=== PATIENT | female | born 1980 | race Caucasian/White ===

== ENCOUNTER → 2019-07-17 17:21 | Outpatient (CLI) | payer MEDICAID, SELFPAY ==
[2019-07-21 21:00] LABS: Neisseria gonorrhoeae, NAA Negative (Negative)
== END ==
PROVIDERS: Visit Provider Nurse Practitioner Family
DX: N94.9 Unspecified condition associated with female genital organs and menstrual cycle (principal)
CPT/HCPCS: 87252; 87491; 87591

== ENCOUNTER 2021-01-21 11:28 | Inpatient (IN) | payer MEDICAID, SELFPAY ==
[2021-01-21 11:30] VITALS: BP 118/72; PULSE 43; RESP 20; TEMP 37.3; O2SAT 98; BMI 12.1
--- NOTE | 2021-01-21 11:34 | HMH.EDGENADL ---
ED Disposition Clinical Impression: Sepsis Qualifiers: Sepsis type: sepsis due to unspecified organism Sepsis acute organ dysfunction status: with acute organ dysfunction Severe sepsis acute organ dysfunction type: encephalopathy Severe sepsis shock status: without septic shock Qualified Code(s): A41.9 - Sepsis, unspecified organism; R65.20 - Severe sepsis without septic shock; G93.40 - Encephalopathy, unspecified Clinical Impression: (Ruled Out): Sepsis due to Acinetobacter baumannii Disposition: Admitted As Inpatient Condition on Discharge: Good Referrals: Daren Singh MD [Primary Care Provider] - - Critical Care Critical Care Time: Yes Attestation: On , the high probability of a clinically significant, sudden or life threatening deterioration of the following system(s) required my full and direct attention, intervention and personal management. The time I documented below is in addition to time spent performing reported procedures but includes the following listed in this critical care notation. Vital system(s) involved:: Circulatory Failure, Metabolic Failure My critical care processes included: Assessment & monitoring of V/S, Initial and Re-exams, Data Review/Interpretation, Coordinating Care, Medication Orders and management, Documentation Medical Decision Making - Dangelo Inquiry Pt receiving controlled substance: No Vital Signs: 01/21/21 11:30 01/21/21 12:45 01/21/21 13:30 Temperature 99.2 F Temperature Source Oral Pulse Rate 37 L 55 L Pulse Rate [Right] 43 L Respiratory Rate 20 22 22 Blood Pressure 150/92 H 131/74 Blood Pressure [Right Arm] 118/72 Blood Pressure Mean [Right Arm] 87 02 Sat by Pulse Oximetry 98 100 98 Oxygen Delivery Method Room Air - Lab Data Lab Results 01/21/21 12:03: WBC 16.4 H, RBC 4.87, Hgb 15.2, Hct 45.9, MCV 94.1, MCH 31.1, MCHC 33.1, RDW 13.9, Plt Count 321, MPV 8.3, Neut % (Auto) 81.6 H, Lymph % (Auto) 13.1, [place] % (Auto) 4.4, Eos % (Auto) 0.3, Baso % (Auto) 0.6, Neut # (Auto) 13.4 H, Lymph # (Auto) 2.1, [place] # (Auto) 0.7, Eos # (Auto) 0.1, Baso # (Auto) 0.1, Total Counted 100, Neutrophils % (Manual) 76, Lymphocytes % (Manual) 17, Monocytes % (Manual) 5, Eosinophils % (Manual) 2, Platelet Estimate Normal, RBC Morphology Normal 01/21/21 12:03: Sodium 139, Potassium 4.6, Chloride 105, Carbon Dioxide 23, Anion Gap 15.6 H, BUN 11, Creatinine 0.70, Estimated Creat Clear 46, Estimated GFR 93, Est GFR ( Amer) 113, Glucose 149 H, Calcium 10.0, Total Bilirubin 0.8, AST 37 H, ALT 15, Alkaline Phosphatase 95, Total Protein 7.9, Albumin 5.0, Globulin 2.9, Albumin/Globulin Ratio 1.7, Lipase 111 01/21/21 12:03: VBG pH 7.42 H, VBG pCO2 34.0 L, VBG pO2 33.7, VBG HCO3 21.4 L, VBG Total CO2 22.4 L, VBG O2 Saturation 73.1 H, VBG Base Excess -3.2 L 01/21/21 12:03: Magnesium 1.7 01/21/21 12:03: Lactate 2.4 H 01/21/21 12:10: POC Glucose 135 H 01/21/21 12:10: SARS-CoV-2 (PCR) Not detected, Influenza A Untype (PCR) Not detected, Influenza Type B (PCR) Not detected 01/21/21 13:41: Urine Color Yellow, Urine Appearance Clear, Urine pH 6.0, Ur Specific [place] 1.020, Urine Protein Trace, Urine Glucose (UA) Negative, Urine Ketones 1+, Urine Blood 1+, Urine Nitrate Negative, Urine Bilirubin Negative, Urine Urobilinogen 0.2, Ur Leukocyte Esterase Negative, Urine RBC 5-10, Urine WBC 3-5, Ur Squamous Epith Cells 5-10, Amorphous Sediment 1+, Urine Bacteria 1+ Result diagrams: 01/21/21 12:03 01/21/21 12:03 Orders (Tests/Meds): ED MEDICATIONS Generic Name Dose Route Start Last Admin Trade Name Freq PRN Reason Stop Dose Admin Lactated Ringer's 1,000 mls @ 999 mls/hr 01/21/21 14:00 01/21/21 13:59 Lactated Ringer's 1000 Ml Bag IV 01/21/21 15:00 999 mls/hr .Q1H1M JORGE ALBERTO Administration Metronidazole 500 mg in 100 mls @ 100 mls/hr 01/21/21 14:30 Flagyl 500mg/100ml Ivpb IV 02/04/21 14:29 Q8H JORGE ALBERTO Ertapenem 1 gm/ Sodium 50 mls @ 100 mls/hr 01/21/21 14:45 01/21/21 14:41
--- NOTE | 2021-01-21 11:44 | XR_ITS ---
PROCEDURE: XR CHEST PORTABLE CLINICAL HISTORY: pain COMPARISON: CT CT ABDOMEN PELVIS W CON from 01/21/2021 FINDINGS: The cardiomediastinal silhouette and pulmonary vascularity are within normal limits. There is a 7 mm nodular opacity in the left midlung overlying the 4th rib anteriorly nonspecific. No lobar consolidation or collapse. Fibular pad artifact noted in the left lower and right lateral hemithorax . A 2-3 mm metallic density overlies the lateral aspect of the scapula 2 cm deep to the glenoid. IMPRESSION: No acute finding. Nonspecific 7 mm nodular opacity left midlung possibly due to a granuloma. Nonemergent CT may confirm Dictated by: Rogelio Camargo MD 01/21/2021 13:52 Rogelio Camargo MD in [facility] 01/21/2021 13:52
--- NOTE | 2021-01-21 11:44 | CT_ITS ---
PROCEDURE: CT ABDOMEN PELVIS W CON CLINICAL INDICATION: abd pain vomiting COMPARISON: No exams were available for comparison TECHNIQUE: IV Contrast: 75ML Isovue 370 Oral Contrast None Axial images obtained with sagittal and coronal reformats. All CT scans at the facility use one or more dose reduction, viz: automated exposure control, ma/kV adjustment per patient size (including targeted exams where dose is matched to indication, i.e. head), or iterative reconstruction technique. FINDINGS: LOWER THORAX: There are mild atelectatic or fibrotic changes in the left lung base. ABDOMEN & PELVIS: Decreased attenuation is present in the periportal region of the liver and may be seen with periportal edema. The the liver, spleen, adrenal glands, and pancreas have an unremarkable appearance. No intestinal obstruction or free air. There is mild thickening of the descending and sigmoid colon proximally. There is a mild amount of retained colonic feces in the rectosigmoid region. No evidence of appendicitis. Prior hysterectomy. No pelvic mass or abnormal fluid collection. No acute bony findings. IMPRESSION: Mild thickening of the descending and proximal sigmoid colon which may indicate colitis versus nondistention. Possible periportal edema versus artifact. Dictated by: Rogelio Camargo MD 01/21/2021 13:48 Rogelio Camargo MD in [facility] 01/21/2021 13:48
--- NOTE | 2021-01-21 11:54 | ECG_ITS ---
APPROVED REPORT Exam: Resting ECG HR:38 bpm ECG Measurements Heart Rate 38 AXES MD 126 P 85 QRSd 78 QRS 85 QT 554 T 83 QTc 440 Conclusion Marked sinus bradycardia Biatrial enlargement Abnormal ECG Electronically signed by : Willam Osullivan MD 01/21/2021 17:15:57
[2021-01-21 12:23] VITALS: BMI 12.9
[2021-01-21 12:26] LABS: Basophils # 0.1 K/mm3 (0-0.2); Basophils % 0.6 % (0.1-2.0); Eosinophils # 0.1 K/mm3 (0.0-0.4); Eosinophils % 0.3 % (0.1-12.0); Hematocrit 45.9 % (37.0-47.0); Hemoglobin 15.2 g/dL (12.2-16.2); Lymphocytes # 2.1 K/mm3 (0.7-4.5); Lymphocytes % 13.1 % (10-50); Mean Corpuscular HGB Conc 33.1 g/dL (31.8-35.4); Mean Corpuscular Hemoglobin 31.1 pg (27.0-31.2); Mean Corpuscular Volume 94.1 fl (81-99); Mean Platelet Volume 8.3 fl (7.4-10.4); Monocytes # 0.7 K/mm3 (0.1-1.0); Monocytes % 4.4 % (1.7-9.3); Neutrophils # 13.4 K/mm3 (1.8-7.8); Neutrophils % 81.6 % (37.0-80.0); Platelet Count 321 K/mm3 (142-424); Red Blood Count 4.87 M/mm3 (4.20-5.40); Red Cell Distribution Width 13.9 % (11.5-17.5); White Blood Count 16.4 K/mm3 (4.8-10.8)
[2021-01-21 12:28] LABS: POC Glucose,Bedside 135 (70-110)
[2021-01-21 12:28] LABS: MANUAL DIFFERENTIAL MANUAL DIFFERENTIAL (MANUAL DIFF)
[2021-01-21 12:33] LABS: Chloride 105 mmol/L (98-107); Sodium 139 mmol/L (136-145)
[2021-01-21 12:34] LABS: Potassium 4.6 mmoL/L (3.5-5.1)
[2021-01-21 12:36] LABS: Alanine Aminotransferase 15 U/L (12-78); Alkaline Phosphatase 95 U/L (38-126); Anion Gap 15.6 mEq/L (5-15); Aspartate Amino Transferase 37 U/L (14-36); Bilirubin,Total 0.8 mg/dl (0.2-1.3); Blood Urea Nitrogen 11 mg/dl (7-17); Carbon Dioxide 23 mmol/L (22.0-30.0); Creatinine Clearance Estimated 46 mL/min (50-200); Estimated Glomerular Filt Rate 93 ml/min (>60); GFR (African American) 113 ML/MIN (>60); Glucose 149 mg/dl (74-100); Lipase 111 U/L (23-300)
[2021-01-21 12:37] LABS: Albumin/Globulin Ratio 1.7 (1.1-1.8); Globulin 2.9 g/dL (1.3-3.2); Magnesium 1.7 mg/dl (1.6-2.3); Total Protein,Serum 7.9 g/dl (6.3-8.2)
[2021-01-21 12:42] LABS: Eosinophils % 2 % (0-3); Lymphocytes % 17 % (10-50); Monocytes % 5 % (2-9); Neutrophils % 76 % (42-76); Platelet Estimate Normal; RBC Morphology Normal; Total Cells Counted 100
[2021-01-21 12:45] VITALS: BP 150/92; PULSE 37; RESP 22; O2SAT 100
--- NOTE | 2021-01-21 12:58 | HMH.ITSTN ---
ON HOLD PER ER
--- NOTE | 2021-01-21 12:59 | PC.NURSE ---
rad at BS for portable chest xray
--- NOTE | 2021-01-21 13:01 | PC.NURSE ---
[facility] returned call
[2021-01-21 13:02] LABS: VBG Base Excess -3.2 mmol/L (-2.4-2.3); VBG HCO3 21.4 mmol/L (23-30); VBG Oxygen Saturation 73.1 % (50-70); VBG PH 7.42 mmol/L (7.31-7.41); VBG PO2 33.7 mmol/L (28-40); VBG Total CO2 22.4 mmol/L (23-27)
[2021-01-21 13:02] LABS: Coronavirus 19, PCR Not Detected (NotDetected); Influenza A, PCR Not Detected (NotDetected); Influenza B, PCR Not Detected (NotDetected)
--- NOTE | 2021-01-21 13:13 | PC.NURSE ---
pt to CT with rad staff and nina welch on administrative services specialist
[2021-01-21 13:30] VITALS: BP 131/74; PULSE 55; RESP 22; O2SAT 98
[2021-01-21 13:30] LABS: Lactic Acid 2.4 mmol/L (0.7-2.1)
--- NOTE | 2021-01-21 13:30 | PC.NURSE ---
patient returned from CT at this time
[2021-01-21 13:48] LABS: Microscopic, Urine URINE MICROSCOPIC (MICROSCOPIC)
[2021-01-21 13:51] LABS: Appearance,Urine CLEAR (Clear); Bilirubin,Urine Negative (Negative); Blood, Urine 1+ (Negative); Color,Urine YELLOW (Yellow); Glucose,Urine (UA) Negative (Negative); Ketones,Urine 1+ (Negative); Leukocyte Esterase,Urine Negative (Negative); Nitrate,Urine Negative (Negative); Protein,Urine TRACE (Negative); Urobilinogen,Urine 0.2 EU/dl (0.2)
[2021-01-21 13:58] LABS: Amorphous Sediment,Urine 1+ /lpf; Bacteria,Urine 1+ /lpf
--- NOTE | 2021-01-21 13:59 | PC.NURSE ---
Called Dr Singh's office so MD could speak with him concerning pt. No answer at this time. Voicemail left on [employer]'s machine requesting a return call.
--- NOTE | 2021-01-21 14:19 | PC.NURSE ---
speaking with Dr Singh at this time.
--- NOTE | 2021-01-21 14:27 | PC.NURSE ---
notified care management of admission
--- NOTE | 2021-01-21 15:12 | PC.NURSE ---
SEPSIS FORM COMPLETE IN PATIENT'S CHART
--- NOTE | 2021-01-21 15:14 | PC.NURSE ---
Attempted to call report to 2nd floor at this time without success. Supposed to receive a phone call back for report
--- NOTE | 2021-01-21 15:21 | CA_ITS ---
APPROVED REPORT EXAM: Comprehensive 2D, Doppler, and color-flow Echocardiogram State Pilot: Jamila Rockwell RVT Ht: 4 ft 9 in Wt: 60lbs BSA: 1.08 BP: 131/74 mmHg Indications: BRADYCARDIA,SEPSIS,HX BREAST CA,SMOKER,SOA VERY TDS-R/T VERY SMALL BODY HABITUS AND PT CONDITION 2D Dimensions LVOT 1.59 cm (M/F) 1.5-2.5 M-Mode Dimensions RVDd 0.91 cm (0.9-2.6) LA Diam 2.51 cm (1.9-4.0) LVDd 3.89 cm (3.5-5.7) Ao Diam 2.54 cm (2.0-3.7) LVDs 2.95 cm (3.5-5.7) IVSd 0.50 cm (0.6-1.1) PWd 0.70 cm (0.6-1.1) EF (Teich) 48.70% FS 24.20% EDV (Teich) 65.50 mL ESV (Teich) 33.60 mL LV Diastology E Decel Time 150.00 (160-240 msec) E/A Ratio 2.4 MED E' 5.40 (< 7 cm/sec) E'/MED E' Ratio 20.37 (>14) LAT E' 8.10 (<10 cm/sec) E/LAT E' Ratio 13.58 (>14) Aortic Valve AO VTI 26.93 (18-25 cm) Mitral Valve MV E Max Rg. 110.00 (40-130 cm/s) MV A Velocity 46.00 (40-130 cm/s) E/A Ratio 2.38 MV Decel. Time 150.00 (160-240 ms) MV PHT 44.00 ms Pulmonary Valve PV Peak Velocity 41.00 (50-150 cm/s) Tricuspid Valve TR P. Velocity 310.00 cm/s RAP Estimate 10.00 mmHg RVSP 48.50 mmHg Left Ventricle Left atrium is mildly enlarged, left ventricle is normal size, visually estimated ejection fraction 50%, the proximal interventricular septum appears to be dyskinetic diastolic parameters are inconclusive. Right Ventricle Right atrium and right ventricle are normal size and contractility. Aortic Valve Aortic valve is minimally thickened and fibrosed. There is no aortic stenosis or aortic insufficiency. Mitral Valve Mitral valve leaflets are minimally thickened, there is no mitral stenosis, there is moderate mitral regurgitation. Tricuspid Valve Tricuspid valve grossly normal, there is mild tricuspid regurgitation, tricuspid regurgitation jet velocity is inadequate for calculation of the right ventricular systolic pressure. Pulmonic Valve Pulmonic valve is poorly visualized. Great Vessels Aortic root is normal size. Pericardium No significant pericardial effusion noted. Conclusion 1. Technically difficult and challenging study. 2. Mildly enlarged left atrium normal left ventricular size, visually estimated ejection fraction 50%, the proximal intraventricular septum is dyskinetic. Diastolic parameters are inconclusive. 3. Moderate mitral and mild tricuspid regurgitation. 4. No significant pericardial effusion noted. Electronically signed by : Juan Tapia MD 01/23/2021 08:46:21
--- NOTE | 2021-01-21 15:25 | HMH.PHAINT ---
MEDICATION RECONCILIATION COMPLETE USING EXTERNAL PHARMACY FILL HISTORY. CONFIRMED DOSE WITH [facility] REPORT AND PHARMACY.
--- NOTE | 2021-01-21 15:40 | PC.NURSE ---
Gave report to Melissa MONCADA at this time
[2021-01-21 16:00] VITALS: BP 137/97; BP 156/71; PULSE 42; PULSE 44; PULSE 47; RESP 18; RESP 23; TEMP 36.4; TEMP 37.2; O2SAT 98
--- NOTE | 2021-01-21 16:01 | HMH.PHAVTE ---
[facility] Pharmacy VTE Monitoring - Patient Demographics Admission date: 01/21/21 Report Date: 01/21/21 Time: 16:01 Allergies/Adverse Reactions: Patient Allergies AVALOX Adverse Reaction (Unknown, Uncoded 07/17/19 14:13) I-RASH SULFA (SULFONAMIDE) Adverse Reaction (Unknown, Uncoded 07/17/19 14:13) I-RASH Height: 1.45 m Weight: 27.216 kg Patient Problems: Current Active Problems Sepsis (Acute) - VTE Risk Labs: VTE Related Lab Results Hgb 15.2 g/dL (12.2-16.2) 01/21/21 12:03 Hct 45.9 % (37.0-47.0) 01/21/21 12:03 Plt Count 321 K/mm3 (142-424) 01/21/21 12:03 BUN 11 mg/dl (7-17) 01/21/21 12:03 Creatinine 0.70 mg/dl (0.52-1.04) 01/21/21 12:03 Estimated Creat Clear 46 mL/min (50-200) 01/21/21 12:03 Clinical Trial Participant: No - Prophylaxis VTE Prophylaxis Ordered?: Yes Types of VTE Prophylaxis: TEDS Knee High
[2021-01-21 17:10] LABS: Reflex Lactic Add Lactic Reflex
[2021-01-21 17:51] LABS: Lactic Acid Follow Up (RFLX 1) 2.3 mmol/L (0.7-2.1)
--- NOTE | 2021-01-21 18:43 | PC.NURSE ---
1827 - Pt rang out to speak to nurse, nurse entered room and pt stated that she wanted to go outside. RN offered pt a nicotine patch, pt refused stating that she just wanted to go outside. Reviewed policy of leaving floor and told pt that MD would need to be notified prior to leaving floor. 1833 - Spoke to Dr. Singh via phone @ this time and made him aware of situation. MD states pt not to leave floor, if she is to leave floor she will need to sign out AMA. Relayed this to pt, pt continued to use profanity and throw personal items around room. IV in RAC dc'd. AMA paper reviewed w/ pt and signed, copy given to pt. Pt left floor @ 184
[2021-01-21 19:40] LABS: Reflex Lactic (2 hrs) Add Lactic Reflex
--- NOTE | 2021-02-01 12:16 | HMH.HPDC ---
General - General Admission date:: 01/21/21 Discharge date: 01/21/21 *Admission Date: 01/21/21 *Chief complaint: vomiting *History of present illness: 40-year-old female with significant past medical history of breast cancer status post chemotherapy over a year ago and colitis who presents emerge department for evaluation of a 3-day history of nausea and vomiting with associated diarrhea. She states that she has been unable to tolerate p.o. intake for the past day. She is also had multiple episodes of watery nonbloody diarrhea. Denies any recent sick contacts denies any recent fevers. She is tender in her epigastric region. Denies any recent chest pain shortness of breath.- per ED note [facility] History I have reviewed the patient's past medical history: Yes Medical History: Reports:: Cancer *Have you ever received a pneumonia vaccine?: No *Have you received a flu vaccine this season?: No Laterality Cases: Right: Arthroscopy Shoulder Other Surgeries: Yes: Cancer Surgery Amputation: No Fractures: No - *Social History Smoking Status: Current every day smoker Tobacco Type: cigarettes # Packs/Day (cigarettes): 1 Alcohol Intake: current Alcohol Intake Frequency:: holidays/special occasions only Substance Use Type: marijuana, painkillers *Occupational Status:: unemployed Housing: house Household Members: spouse *Travel in the last 8 weeks: None Family Hx:: No significant family history Review of Systems - Review of Systems Review of systems:: unable to obtain Exam Vital signs and Labs for Last 24 Hours: Temp Pulse Resp BP Pulse Ox 97.6 F 42 L 23 137/97 H 98 01/21/21 16:00 01/21/21 16:00 01/21/21 16:00 01/21/21 16:00 01/21/21 16:00 I & O for Last 24 hours: pt left AMA before being seen - *Routine HEENT Exam Head: Present: other Eye: Present: other ENT: Present: other - *Routine Respiratory Exam Present: other - *Routine Cardiovascular Exam Present: other - *Routine Abdominal Exam Present: other. Absent: tenderness - *Routine Rectal Exam Rectal:: deferred - *Routine Genitalia Exam Genitalia:: deferred - *Routine Skin Exam Comments: not seen - *Routine Neurological Exam left ama Hospital Course Hospital Course: PT Left AMA before being seen by pcp. Laboratory Tests 01/21/21 01/21/21 01/21/21 12:03 12:03 12:03 WBC 16.4 H RBC 4.87 Hgb 15.2 Hct 45.9 MCV 94.1 MCH 31.1 MCHC 33.1 RDW 13.9 Plt Count 321 MPV 8.3 Neut % (Auto) 81.6 H Lymph % (Auto) 13.1 [place] % (Auto) 4.4 Eos % (Auto) 0.3 Baso % (Auto) 0.6 Neut # (Auto) 13.4 H Lymph # (Auto) 2.1 [place] # (Auto) 0.7 Eos # (Auto) 0.1 Baso # (Auto) 0.1 Total Counted 100 Neutrophils % (Manual) 76 Lymphocytes % (Manual) 17 Monocytes % (Manual) 5 Eosinophils % (Manual) 2 Platelet Estimate Normal RBC Morphology Normal VBG pH 7.42 H VBG pCO2 34.0 L VBG pO2 33.7 VBG HCO3 21.4 L VBG Total CO2 22.4 L VBG O2 Saturation 73.1 H VBG Base Excess -3.2 L Sodium 139 Potassium 4.6 Chloride 105 Carbon Dioxide 23 Anion Gap 15.6 H BUN 11 Creatinine 0.70 Estimated Creat Clear 46 Estimated GFR 93 Est GFR ( Amer) 113 Glucose 149 H POC Glucose Lactate Calcium 10.0 Magnesium Total Bilirubin 0.8 AST 37 H ALT 15 Alkaline Phosphatase 95 Total Protein 7.9 Albumin 5.0 Globulin 2.9 Albumin/Globulin Ratio 1.7 Lipase 111 Urine Color Urine Appearance Urine pH Ur Specific [place] Urine Protein Urine Glucose (UA) Urine Ketones Urine Blood Urine Nitrate Urine Bilirubin Urine Urobilinogen Ur Leukocyte Esterase Urine RBC Urine WBC Ur Squamous Epith Cells Amorphous Sediment Urine Bacteria SARS-CoV-2 (PCR) Influenza A Untype (PCR) Influenza Type B (PCR) 01/21/21 01/21/21
== END 2021-01-21 18:41 | disposition left against medical advice (07) | DRG 872 ==
LOC: ER 14:52 → 2ND 15:01
PROVIDERS: Admitting Provider Emergency Medicine; Emergency Provider Emergency Medicine; PCP Emergency Medicine; Visit Provider Emergency Medicine
DX: A41.9 Sepsis, unspecified organism (principal)
CPT/HCPCS: 71045; 74177; 80053; 81001; 82803; 82962; 83605; 83690; 83735; 85007; 85025; 87040; 93005; 93306; 96365; 99285; J1335; J2405; Q9967; U0003

== ENCOUNTER → 2021-01-26 14:27 | Outpatient (CLI) | payer MEDICAID, SELFPAY ==
[2021-01-26 14:40] LABS: Alanine Aminotransferase 23 U/L (12-78); Albumin Level 4.2 g/dl (3.5-5.0); Albumin/Globulin Ratio 1.8 (1.1-1.8); Alkaline Phosphatase 70 U/L (38-126); Aspartate Amino Transferase 33 U/L (14-36); Bilirubin,Total 0.4 mg/dl (0.2-1.3); Blood Urea Nitrogen 12 mg/dl (7-17); Calcium 9.4 mg/dl (8.4-10.2); Carbon Dioxide 29 mmol/L (22.0-30.0); Chloride 104 mmol/L (98-107); Chol/HDL Ratio 2.4 (1-3.5); Cholesterol 195 mg/dl (140-200); Estimated Glomerular Filt Rate 111 ml/min (>60); GFR (African American) 135 ML/MIN (>60); Globulin 2.4 g/dL (1.3-3.2); Glucose 98 mg/dl (74-100); HDL Cholesterol 81 mg/dl (40-60); Sodium 139 mmol/L (136-145); Total Protein,Serum 6.6 g/dl (6.3-8.2); Triglycerides 81 mg/dl (30-150); VLDL Cholesterol 16 mg/dL (0-40)
[2021-01-26 14:44] LABS: Basophils # 0.1 K/mm3 (0-0.2); Basophils % 0.9 % (0.1-2.0); Eosinophils # 0.1 K/mm3 (0.0-0.4); Eosinophils % 1.4 % (0.1-12.0); Hematocrit 40.4 % (37.0-47.0); Hemoglobin 13.3 g/dL (12.2-16.2); Lymphocytes # 1.9 K/mm3 (0.7-4.5); Lymphocytes % 29.4 % (10-50); Mean Corpuscular HGB Conc 32.8 g/dL (31.8-35.4); Mean Corpuscular Hemoglobin 31.9 pg (27.0-31.2); Mean Corpuscular Volume 97.1 fl (81-99); Mean Platelet Volume 9.3 fl (7.4-10.4); Monocytes # 0.3 K/mm3 (0.1-1.0); Monocytes % 4.8 % (1.7-9.3); Neutrophils # 4.1 K/mm3 (1.8-7.8); Neutrophils % 63.5 % (37.0-80.0); Platelet Count 282 K/mm3 (142-424); Red Blood Count 4.16 M/mm3 (4.20-5.40); White Blood Count 6.4 K/mm3 (4.8-10.8)
[2021-01-26 14:52] LABS: Direct LDL Cholesterol 91.46 mg/dL (100-129)
[2021-01-26 14:57] LABS: T4 (Thyroxine) 7.9 ug/dl (5.53-11.0)
== END ==
PROVIDERS: Visit Provider Nurse Practitioner Family
DX: A41.9 Sepsis, unspecified organism (principal)
CPT/HCPCS: 80053; 80061; 84436; 84443; 85025

== ENCOUNTER → 2021-03-01 17:37 | Outpatient (CLI) | payer MEDICAID, SELFPAY ==
[2021-03-01 18:03] LABS: Chloride 103 mmol/L (98-107); Potassium 4.5 mmoL/L (3.5-5.1); Sodium 141 mmol/L (136-145)
[2021-03-01 18:06] LABS: Alanine Aminotransferase 18 U/L (12-78); Albumin Level 4.9 g/dl (3.5-5.0); Albumin/Globulin Ratio 1.8 (1.1-1.8); Alkaline Phosphatase 84 U/L (38-126); Anion Gap 12.5 mEq/L (5-15); Aspartate Amino Transferase 33 U/L (14-36); Bilirubin,Total 0.4 mg/dl (0.2-1.3); Blood Urea Nitrogen 8 mg/dl (7-17); Carbon Dioxide 30 mmol/L (22.0-30.0); Estimated Glomerular Filt Rate 111 ml/min (>60); GFR (African American) 134 ML/MIN (>60); Globulin 2.8 g/dL (1.3-3.2); Total Protein,Serum 7.7 g/dl (6.3-8.2)
[2021-03-01 18:07] LABS: Glucose 95 mg/dl (74-100)
[2021-03-01 18:21] LABS: Basophils # 0.1 K/mm3 (0-0.2); Basophils % 0.8 % (0.1-2.0); Eosinophils % 0.4 % (0.1-12.0); Hematocrit 45.1 % (37.0-47.0); Hemoglobin 14.3 g/dL (12.2-16.2); Lymphocytes # 2.4 K/mm3 (0.7-4.5); Lymphocytes % 24.9 % (10-50); Mean Corpuscular HGB Conc 31.6 g/dL (31.8-35.4); Mean Corpuscular Hemoglobin 31.8 pg (27.0-31.2); Mean Corpuscular Volume 100.7 fl (81-99); Monocytes # 0.5 K/mm3 (0.1-1.0); Monocytes % 4.7 % (1.7-9.3); Neutrophils # 6.5 K/mm3 (1.8-7.8); Neutrophils % 69.2 % (37.0-80.0); Platelet Count 297 K/mm3 (142-424); Red Blood Count 4.48 M/mm3 (4.20-5.40); White Blood Count 9.5 K/mm3 (4.8-10.8)
[2021-03-01 18:37] LABS: Thyroid Stimulating Hormone 2.42 uIU/mL (0.465-4.68)
[2021-03-01 19:10] LABS: Erythrocyte Sedimentation Rate 5 mm/hr (0-20); Free T4 (Free Thyroxine) 1.12 ng/dl (0.78-2.19)
[2021-03-01 19:45] LABS: 25-OH Vitamin D, Total 42.8 ng/mL (30-100)
[2021-03-03 09:19] LABS: HIV Screen 4th Generation wRfx Non Reactive (Non Reactive)
[2021-03-03 11:12] LABS: Hep A Ab, IgM Negative (Negative); Hep A Ab, Total Negative (Negative); Hep B Core Ab, Total Negative (Negative); Hep B Surface Ab, Qual Non Reactive (.); Hepatitis B Surface Antigen Negative (Negative); Hepatitis C Antibody <0.1 s/co ratio (0.0-0.9)
[2021-03-04 04:14] LABS: ALT (SGPT) P5P 19 IU/L (0-40); Alpha 2-Macroglobulins, Qn 215 mg/dL (110-276); Apolipoprotein A-1 196 mg/dL (116-209); Bilirubin, Total 0.2 mg/dL (0.0-1.2); Fibrosis Score 0.05 (0.00-0.21); GGT 19 IU/L (0-60); Haptoglobin 104 mg/dL (33-278); Necroinflammat Activity Grade A0-No activity (.); Necroinflammat Activity Score 0.05 (0.00-0.17)
== END ==
PROVIDERS: Visit Provider Emergency Medicine
DX: A41.9 Sepsis, unspecified organism (principal); K52.9 Noninfective gastroenteritis and colitis, unspecified; E55.9 Vitamin D deficiency, unspecified; Z11.4 Encounter for screening for human immunodeficiency virus [HIV]; F19.11 Other psychoactive substance abuse, in remission; Z79.899 Other long term (current) drug therapy
CPT/HCPCS: 80053; 81596; 82306; 84439; 84443; 85025; 85651; 86703; 86704; 86706; 86708; 87340; 87380; 87522; 87902; G0432

== ENCOUNTER → 2021-03-09 10:25 | Outpatient (CLI) | payer MEDICAID, SELFPAY ==
--- NOTE | 2021-03-09 10:25 | MM_ITS ---
PROCEDURE: MM DIG SC MAMM UNILAT LT CAD Digital Breast Tomosynthesis Included CLINICAL INDICATION: screening COMPARISON: [facility] LT from 04/29/2019 TECHNIQUE: Standard CC and MLO images and 3D Tomosynthesis was obtained. R2 CAD reviewed. FINDINGS: Report delayed waiting on outside films for comparison obtained and submitted on 03/15/2021. There has been a prior right mastectomy. The breasts are extremely dense which lowers the sensitivity of mammography.. There is a dense nodular lesion in the upper outer aspect of the left breast toward the axillary portion of the breast. This measures 5 x 4 mm. The margins are somewhat irregular having a micro nodular appearance. There benign-appearing calcifications in the retroareolar region laterally. IMPRESSION: 5 x 4 mm indeterminate nodular lesion in the upper outer left breast. Suggest spot compression views and left breast ultrasound for further evaluation. BI-RAD Category: 0 Need Additional Imaging Evaluation FOLLOW-UP: IMM Immediate Follow-up Recommended (A letter has been sent to the patient regarding results of the study.) Dictated by: Rogelio Camargo MD 03/15/2021 15:36 Rogelio Camargo MD in [place] 03/15/2021 15:36
== END ==
PROVIDERS: PCP Emergency Medicine; Visit Provider Emergency Medicine
DX: Z12.31 Encounter for screening mammogram for malignant neoplasm of breast (principal)
CPT/HCPCS: 77063; 77067

== ENCOUNTER → 2021-03-25 14:56 | Outpatient (CLI) | payer MEDICAID, SELFPAY ==
--- NOTE | 2021-03-25 14:56 | MR_ITS ---
PROCEDURE: MR LUMBAR SPINE WO CON CLINICAL INDICATION: back pain COMPARISON: No exams were available for comparison TECHNIQUE: Standard multiplanar multiecho sequences are performed without contrast. 3-D MIP and myelographic images are also rendered and reviewed FINDINGS: There is normal alignment. The spinal cord ends at the L1 level. L1-L2, L2-L3, and L3-L4 unremarkable appearance. L4-5: Small annular fissure in the right foraminal region with minimal bulging disc at this area. There is mild right foraminal narrowing. Mild facet hypertrophic change. L5-S1: Unremarkable. No extruded herniated disc or canal stenosis. There are small bilateral renal T2 hyperintensities 1 on the right laterally at 7 mm and 1 on the left laterally at 8 mm. These are not as intense as what 1 would expect for simple cysts. A T2 hypointensity is present in the upper pole of the left kidney at 6 mm. IMPRESSION: 1. No extruded herniated disc or canal stenosis. 2. L4-5: Small annular fissure in the right foraminal region with minimal bulging disc at this area. There is mild right foraminal narrowing. Mild facet hypertrophic change 3. Small bilateral renal T2 hyperintensities in hypointensity in the upper pole of the left kidney. Bilateral renal ultrasound suggested for further evaluation. Dictated by: Rogelio Camargo MD 03/26/2021 11:39 Rogelio Camargo MD in [place] 03/26/2021 11:39
== END ==
PROVIDERS: PCP Emergency Medicine; Visit Provider Emergency Medicine
DX: M54.9 Dorsalgia, unspecified (principal)
CPT/HCPCS: 72148; 76376

== ENCOUNTER → 2021-03-28 14:40 | Outpatient (CLI) | payer MEDICAID, SELFPAY ==
--- NOTE | 2021-03-28 14:41 | MM_ITS ---
PROCEDURE: MM DIG MAMM DX UNILAT LT CAD Digital Breast Tomosynthesis Included Left breast ultrasound complete CLINICAL INDICATION: breast lump COMPARISON: MG [facility] LT from 04/29/2019 MG MM DIG SC MAMM UNILAT LT CAD from 03/09/2021 US US BREAST LT COMPLETE from 03/28/2021 TECHNIQUE: Problem solving views of the left breast along with left breast ultrasound FINDINGS: Left mammogram: Spot views of the left breast with again demonstrates an asymmetric density measuring 6 by 5 mm. The margins are somewhat obscured and not well demonstrated on the CC view of these images but better demonstrated on the screening mammogram on the CC image of 03/09/2021. Left breast ultrasound: There is a hypoechoic nodule at 12 o'clock measuring 6 by 6 mm. The nodule is wider than tall. The margins are somewhat irregular laterally and medially. Suggest ultrasound-guided core biopsy as it may be very difficult to perform a stereotactic biopsy due to patient's breast size. This does not have properties of a benign cyst and is new compared to an older mammogram of 04/29/2019. IMPRESSION: Suspicious nodule in the upper outer left breast. A hypoechoic nodule is noted in the 12 o'clock region on the ultrasound. It is uncertain if this represents a mammographic nodule. Suggest ultrasound-guided FNA. If the nodule does not aspirate then core biopsy could be performed. Also recommend removable hookwire placement in that nodule at the time with mammogram to follow this if the nodules are concordant. BI-RAD Category: 4 Suspicious Abnormality-Biopsy Considered FOLLOW-UP: BIO Biopsy Recommended (A letter has been sent to the patient regarding results of the study.) Dictated by: Rogelio Camargo MD 04/07/2021 12:37 Rogelio Camargo MD in [place] 04/07/2021 12:37
== END ==
PROVIDERS: PCP Emergency Medicine; Visit Provider Emergency Medicine
DX: R92.8 Other abnormal and inconclusive findings on diagnostic imaging of breast (principal); N63.20 Unspecified lump in the left breast, unspecified quadrant; Z85.3 Personal history of malignant neoplasm of breast
CPT/HCPCS: 76641; 77061; 77065; G0279

== ENCOUNTER → 2021-04-12 13:17 | Outpatient (CLI) | payer MEDICAID, SELFPAY ==
--- NOTE | 2021-04-12 13:17 | US_ITS ---
PROCEDURE: US KIDNEY CLINICAL INDICATION: COMPARISON: CT CT ABDOMEN PELVIS W CON from 01/21/2021 MR MR LUMBAR SPINE WO CON from 03/25/2021 FINDINGS: The right kidney is 10 x 3 x 5 cm. Left kidney is 9 x 4 x 5 cm. Hypoechoic 7 mm area is noted in the mid aspect of the right kidney. There also some low level echoes within this region however this could be due to artifact. This may represent a small cyst corresponding to the MRI abnormality. Two small hypoechoic areas are present in the mid aspect of the left kidney at 6 mm each and may represent small cysts.. No solid lesions are demonstrated. No hydronephrosis or cortical thinning IMPRESSION: Bilateral hypoechoic nodules which may be due to small cysts. Low level echoes within these region may be due to artifact. Suggest 6 month follow-up to confirm stability. Dictated by: Rogelio Camargo MD 04/12/2021 14:15 Rogelio Camargo MD in [place] 04/12/2021 14:15
== END ==
PROVIDERS: PCP Emergency Medicine; Visit Provider Emergency Medicine
DX: N28.89 Other specified disorders of kidney and ureter (principal)
CPT/HCPCS: 76770

== ENCOUNTER → 2021-04-20 09:28 | Outpatient (CLI) | payer MEDICAID, SELFPAY ==
--- NOTE | 2021-04-20 | MM_ITS ---
PROCEDURE: US FNA BREAST CLINICAL INDICATION: Breast nodule COMPARISON: MG MM DIG SC MAMM UNILAT LT CAD from 03/09/2021 US US BREAST LT COMPLETE from 03/28/2021 MG MM DIG MAMM DX UNILAT LT CAD from 03/28/2021 MG MM DIG MAMM DX UNILAT LT CAD from 04/20/2021 FINDINGS: Previous ultrasound and mammogram demonstrated a suspicious nodule in the 1 o'clock outer region of the left breast measuring approximately 7 by 4 x 6 mm. This corresponded to a palpable abnormality. Patient has had a prior right mastectomy for breast cancer. Patient's breast tissue was very minimal therefore, mammotome biopsy nor core biopsy could be performed adequately. The nodule is just beneath the skin a. Following obtaining informed consent under aseptic conditions with local anesthesia with 1 percent buffered lidocaine with ultrasound guidance FNA was performed as well as 318 gauge core biopsies. The patient tolerated the procedure well without evidence of immediate complication and left radiology suite in stable condition. Post biopsy mammogram was performed and and concordance of the the ultrasound and mammographic abnormality. The there were some post biopsy changes in the 1 o'clock region of the left breast the consistent with concordance of the nodules. Pathology: Invasive carcinoma favor mammary. Although this tissue specimen was labeled as axillary nodule it is felt to be within the axillary tail of the left breast and not an axillary lymph node. IMPRESSION: Uneventful and successful ultrasound-guided biopsy of a left breast nodule at 1 o'clock demonstrated invasive carcinoma favor mammary. Please see pathology report for further description. Dictated by: Rogelio Camargo MD 04/22/2021 18:49 Rogelio Camargo MD in [place] 04/22/2021 18:49
== END ==
PROVIDERS: PCP Emergency Medicine; Visit Provider Physician Assistant
DX: N63.20 Unspecified lump in the left breast, unspecified quadrant (principal)
CPT/HCPCS: 10005; 77061; 77065; G0279

== ENCOUNTER → 2021-05-20 07:38 | Outpatient (CLI) | payer MEDICAID, SELFPAY ==
[2021-05-20 08:08] LABS: Urine Pregnancy, HCG Qual. Positive (Negative)
[2021-05-20 08:18] LABS: Basophils # 0.1 K/mm3 (0-0.2); Basophils % 1.2 % (0.1-2.0); Eosinophils # 0.2 K/mm3 (0.0-0.4); Eosinophils % 2.3 % (0.1-12.0); Hematocrit 45.8 % (37.0-47.0); Hemoglobin 15.6 g/dL (12.2-16.2); Lymphocytes # 2.8 K/mm3 (0.7-4.5); Lymphocytes % 33.5 % (10-50); Mean Corpuscular HGB Conc 34.1 g/dL (31.8-35.4); Mean Corpuscular Hemoglobin 32.6 pg (27.0-31.2); Mean Corpuscular Volume 95.6 fl (81-99); Mean Platelet Volume 7.9 fl (7.4-10.4); Monocytes # 0.5 K/mm3 (0.1-1.0); Monocytes % 5.4 % (1.7-9.3); Neutrophils # 4.7 K/mm3 (1.8-7.8); Neutrophils % 57.6 % (37.0-80.0); Platelet Count 321 K/mm3 (142-424); Red Cell Distribution Width 13.3 % (11.5-17.5); White Blood Count 8.2 K/mm3 (4.8-10.8)
[2021-05-20 09:02] LABS: Coronavirus 19, PCR Not Detected (NotDetected); Influenza A, PCR Not Detected (NotDetected); Influenza B, PCR Not Detected (NotDetected)
[2021-05-20 09:10] LABS: Chloride 103 mmol/L (98-107)
[2021-05-20 09:11] LABS: Potassium 4.5 mmoL/L (3.5-5.1); Sodium 141 mmol/L (136-145)
[2021-05-20 09:13] LABS: Alanine Aminotransferase 20 U/L (12-78); Alkaline Phosphatase 79 U/L (38-126); Aspartate Amino Transferase 34 U/L (14-36); Bilirubin,Total 0.3 mg/dl (0.2-1.3); Blood Urea Nitrogen 15 mg/dl (7-17); Estimated Glomerular Filt Rate 93 ml/min (>60); GFR (African American) 112 ML/MIN (>60)
[2021-05-20 09:14] LABS: Albumin Level 4.9 g/dl (3.5-5.0); Albumin/Globulin Ratio 1.8 (1.1-1.8); Anion Gap 13.5 mEq/L (5-15); Calcium 10.3 mg/dl (8.4-10.2); Carbon Dioxide 29 mmol/L (22.0-30.0); Globulin 2.7 g/dL (1.3-3.2); Glucose 99 mg/dl (74-100); Total Protein,Serum 7.6 g/dl (6.3-8.2)
--- NOTE | 2021-05-20 13:22 | NM_ITS ---
PROCEDURE: NM SENTINEL NODE INJECT ONLY CLINICAL INDICATION: Mass Breast cancer, preop for mastectomy COMPARISON: No exams were available for comparison FINDINGS: Dose, 1.84 mCi technetium sulfur colloid injected in 6 separate doses in the periareolar region. Following obtaining informed consent and time-out procedure under aseptic conditions and local anesthesia with 1 percent buffered lidocaine. 1.84 mCi technetium sulfur colloid was injected in the periareolar region and 6 divided doses. No immediate complications. IMPRESSION: Status post periareolar radionuclide injection for sentinel node localization. Dictated by: Rogelio Camargo MD 05/20/2021 18:09 Rogelio Camargo MD in OV 05/20/2021 18:09
== END ==
PROVIDERS: Visit Provider Surgery
DX: Z01.812 Encounter for preprocedural laboratory examination (principal); Z11.52 Encounter for screening for COVID-19; C50.912 Malignant neoplasm of unspecified site of left female breast; Z17.0 Estrogen receptor positive status [ER+]
CPT/HCPCS: 36415; 38792; 80053; 81025; 85025; A9541; C9803; U0003; U0005

== ENCOUNTER 2021-05-20 08:47 | Observation (INO) | payer MEDICAID, SELFPAY ==
[2021-05-18 11:57] VITALS: BMI 14.5
[2021-05-20] VITALS (16 sets, daily range): BP systolic 65–170; BP diastolic 35–98; PULSE 62–87; RESP 14–21; TEMP 36.1–36.8; O2SAT 93–100; BMI 15.3
--- NOTE | 2021-05-20 09:33 | P.PN_ITS ---
[facility] Anesthesia Checklist - Patient Identification Patient Identification: Arm Band - Structural Data Admitted From: Home Planned Operative Procedure/s: Mastectomy Consent for Planned Operative Procedure(s) Verified: Yes - NPO Status Verified Time NPO: 00:00 - Additional verifications Anesthesia Reactions: No Hx Blood Transfusions: Yes Blood Transfusion Reaction: No - Airway Assessment C-Spine Mobility Assessed: Yes TMJ Mobility Assessed: Yes Dentition: Edentulous - Neurological Assessment Level of Consciousness: Awake Hx Seizures: No Numbness or tingling in extremities: No - Anesthesia Plan Anesthesia Risk discussed: Yes Anesthesia Plan: Verified ASA Class: II Anesthesia Type: General [facility] History I have reviewed the patient's past medical history: Yes Medical History: Reports:: Anxiety, Cancer, Gastroesophageal Reflux Disease(GERD), Osteoporosis Denies:: Diabetes Mellitus Type 1, Diabetes Mellitus Type 2, MRSA, Seizures *Have you ever received a pneumonia vaccine?: No *Have you received a flu vaccine this season?: No Other Medical History: Reports: Osteoporosis. Denies: Blood Transfusion Reaction Anesthesia experience/problems:: None Laterality Cases: Right: Arthroscopy Shoulder, Mastectomy, Bilateral: Tonsillectomy Other Surgeries: Yes: Cancer Surgery Amputation: No Fractures: No - *Social History Last grade of school completed: 7th or 8th Smoking Status: Current every day smoker Tobacco Type: cigarettes # Packs/Day (cigarettes): 1 Alcohol Intake: former Alcohol Intake Frequency:: holidays/special occasions only Substance Use Type: former substance user, marijuana (Current- Last -today) *Occupational Status:: unemployed Housing: house Household Members: spouse *Travel in the last 8 weeks: None Family Hx:: No significant family history
[2021-05-20 10:10] LABS: HCG,Quantitative 12 mIU/ml (0-5.42)
--- NOTE | 2021-05-20 12:07 | HMH.GSHP ---
HPI HPI: This is a 41 year-old female with a history of right-sided breast cancer status post mastectomy. She presented with a palpable nodule in the superior margin of her left breast. Biopsy revealed positive carcinoma. After a long conversation with the patient concerning the risks and benefits the decision was made to proceed with mastectomy with sentinel node biopsy. She chose mastectomy on both occasions of breast cancer diagnosis secondary to size of breast. [facility] History Medical History: Reports:: Anxiety, Cancer, Gastroesophageal Reflux Disease(GERD), Osteoporosis Denies:: Diabetes Mellitus Type 1, Diabetes Mellitus Type 2, MRSA, Seizures *Have you ever received a pneumonia vaccine?: No *Have you received a flu vaccine this season?: No Other Medical History: Reports: Osteoporosis. Denies: Blood Transfusion Reaction Anesthesia experience/problems:: None Laterality Cases: Right: Arthroscopy Shoulder, Mastectomy, Bilateral: Tonsillectomy Other Surgeries: Yes: Cancer Surgery Amputation: No Fractures: No - *Social History Last grade of school completed: 7th or 8th Smoking Status: Current every day smoker Tobacco Type: cigarettes # Packs/Day (cigarettes): 1 Alcohol Intake: former Alcohol Intake Frequency:: holidays/special occasions only Substance Use Type: former substance user, marijuana (Current- Last -today) *Occupational Status:: unemployed Housing: house Household Members: spouse *Travel in the last 8 weeks: None - Psychiatric History Pschychiatric History:: Reports:: Anxiety Family Hx:: No significant family history Review of Systems - Constitutional Denies chills - Eyes Denies change in vision - ENT Denies difficulty swallowing - *Cardiovascular Denies chest pain - *Respiratory Denies cough - *Gastrointestinal Denies abdominal pain - *Genitourinary Denies blood in urine - *Musculoskeletal Denies joint swelling - Integumentary/Breasts Denies new lesions - *Neurologic Denies confusion - Psychiatric Reports anxiety - Endocrine Denies flushing - Hematologic/Lymphatic Denies easy bleeding - Allergic/Immunologic Denies wheezing Meds Home Medications Medication Instructions Recorded Confirmed Type hydrocodone 5 mg-acetaminophen 325 1 tab PO TID PRN #90 tab 05/17/21 05/18/21 Rx mg tablet Diclofenac Sodium [Voltaren 2 g TOPICAL QID 05/18/21 05/18/21 History Arthritis Pain] Lidocaine 1 patch TOPICAL DAILY 05/18/21 05/18/21 History Allergies Allergy/AdvReac Type Severity Reaction Status Date / Time sulfamethoxazole Allergy tachycardia, Verified 05/18/21 11:56 [From Bactrim] rash trimethoprim [From Bactrim] Allergy tachycardia, Verified 05/18/21 11:56 rash gabapentin AdvReac syncope Verified 05/18/21 11:56 AVALOX AdvReac Unknown I-RASH Uncoded 05/17/21 13:53 SULFA (SULFONAMIDE) AdvReac Unknown I-RASH Uncoded 05/17/21 13:53 Exam Vital signs and Labs for Last 24 Hours: Temp Pulse Resp BP Pulse Ox 97.9 F 73 18 140/81 99 05/20/21 08:53 05/20/21 08:53 05/20/21 08:53 05/20/21 08:53 05/20/21 08:53 Laboratory Results - last 24 hr 05/20/21 07:40: HCG, Quant 12 H I & O for Last 24 hours: Intake & Output 05/18/21 05/19/21 05/20/21 05/21/21 11:59 11:59 11:59 11:59 Weight 72 lb - Constitutional no acute distress - *Routine HEENT Exam Head: Present: normocephalic, atraumatic Eye: Present: EOMI ENT: Present: mucous membranes moist - *Routine Neck Exam Present: full ROM - Routine Chest/Breast/Axilla Exam Comments: Palpable left superior margin breast lesion (12:00) - *Routine Respiratory Exam Absent: respiratory distress - *Routine Cardiovascular Exam Present: RRR - *Routine Abdominal Exam Present: soft - *Routine Rectal Exam Rectal:: deferred - *Routine Genitalia Exam Genitalia:: deferred - *Routine Extremities Exam Present: full ROM - Routine Back/Spine/Pelvis Exam Back/Spine: Pr
--- NOTE | 2021-05-20 12:11 | HMH.OPNOTE ---
Date of procedure: 05/20/21 Pre-op Diagnosis:: Left breast cancer Post-op Diagnosis:: Same Procedure performed:: Left mastectomy Left axillary sentinel lymph node biopsy Surgeon:: Patrice Hernandez MD Chiropractic Practice Manager(s):: Joseph SILVER LAP MACHINE TENDER:: Griffin Lerma Anesthesia: GETA Estimated blood loss (mL): 50 Operative findings:: Vertical incision made secondary to overall breast size and central/extreme superior margin location of cancer Left axillary sentinel lymph node target count 24,901 Left axillary nonsentinel tissue with target count 2,266 Operative note:: After informed consent was obtained the patient was taken to the radiology department where injection of radioisotope was completed. Please see separate report for details. She was then transferred to the operating room after a 45-minute wait time . She was placed in the supine position. General anesthesia was induced and her left chest and arm were prepped and draped in a sterile fashion. The neoprobe device was utilized to locate the area of highest uptake in the axilla. After infiltration local anesthetic an incision overlying the site was made. The deep subcutaneous tissue was dissected with a combination of blunt dissection and electrocautery. A slightly-enlarged lymph node was carefully elevated and transected free from surrounding tissue. This lymph node had a target count of 24,901. Slight increased uptake was noted in the surrounding region. This tissue was elevated and transected with electrocautery. The entire tissue was then evaluated with the neoprobe. A target count of 2,266 was noted. This was passed off as nonsentinel axillary tissue. Electrocautery was utilized to achieve hemostasis. Neoprobe evaluation of the entire region revealed only background uptake . Attention was then turned to the breast. Secondary to the extreme superior and central location of her lesion (as well as small breast size) an elliptical/vertical incision was made. The medial lateral flaps were carefully elevated with electrocautery. The underlying breast tissue was carefully elevated as electrocautery was utilized to transect off the fascial margin. The breast was marked along the superior and lateral margins for pathologic evaluationWith careful explanation as to the vertical nature of the incision. Electrocautery was utilized to achieve hemostasis. The incision was reapproximated with a combination of 2-0 Vicryl, 3-0 Stratafix, and 4-0 nylon central retention. Dressings were applied and the patient was transferred to recovery in stable condition. Condition: stable Disposition: PACU Specimens:: Left breast Left axillary sentinel lymph node with target count 24,901 Left axillary nonsentinel tissue with target count 2,266 Complications:: No immediate
--- NOTE | 2021-05-20 12:17 | HMH.ANESI ---
[facility] Anesthesia Record Part I Intake, IV Amount: 500 Estimated blood loss (mL): 50 Urine output (mL): 100 Blood Pressure: 122/81 SaO2: 99 Pulse Rate: 83 Respiratory Rate: 14 Temperature: 97 F Patient is:: Drowsy, Oral/Nasal airway Stable to PACU at:: 12:16
--- NOTE | 2021-05-20 13:39 | PC.NURSE ---
pt arrived to the floor at this time
--- NOTE | 2021-05-20 14:25 | SUR.PHASEI ---
1350-report given to Emy Eric RN. Patient resting comfortably now. Patient taken to room. Boyfriend at bedside. Datascope on intervals of 15 minutes. VSS.
--- NOTE | 2021-05-20 15:00 | HMH.DCSUM ---
General - General Admission date:: 05/20/21 Discharge date: 05/20/21 HPI HPI: This is a 41 year-old female with a history of right-sided breast cancer status post mastectomy. She presented with a palpable nodule in the superior margin of her left breast. Biopsy revealed positive carcinoma. After a long conversation with the patient concerning the risks and benefits the decision was made to proceed with mastectomy with sentinel node biopsy. She chose mastectomy on both occasions of breast cancer diagnosis secondary to size of breast. Hospital Course Hospital Course: The patient was admitted for postoperative observation status post mastectomy. Soon after admission to the floor she had a conversation with nursing staff with regard to being allowed to leave the floor to smoke a cigarette. When made aware of [facility] being a smoke-free facility to include outside grounds...she refused to stay and demanded to be discharged. The patient was made aware of the risks of discharge prior to appropriate observation. She remained adamant. Objective Vital signs: Temp Pulse Resp BP Pulse Ox 97 F L 79 20 123/82 98 05/20/21 12:19 05/20/21 13:46 05/20/21 13:46 05/20/21 13:46 05/20/21 13:46 no acute distress - *Routine HEENT Exam Head: Present: normocephalic Eye: Present: EOMI ENT: Present: mucous membranes moist - *Routine Neck Exam Present: full ROM - Routine Chest/Breast/Axilla Exam Breast: Present: right mastectomy, left mastectomy (Left mastectomy incision with dressing in place. No cellulitis. No sign of active bleeding.) - *Routine Respiratory Exam Absent: respiratory distress - *Routine Cardiovascular Exam Present: RRR - *Routine Abdominal Exam Present: soft - *Routine Rectal Exam Patient deferred: visual exam - *Routine Exam Patient deferred: external exam - *Routine Extremities Exam Present: full ROM - Routine Back/Spine/Pelvis Exam Back/Spine: Present: full ROM - *Routine Skin Exam Absent: erythema - *Routine Neurological Exam Present: alert - Routine Psychiatric Exam Absent: suicidal ideation Results Labs on day of discharge: Labs from last 24 hours 05/20/21 07:40 HCG, Quant 12 H DS: Diagnosis - Discharge Diagnosis (1) Breast cancer, left Status: Acute Discharge Plan - Patient Discharge Instructions ACTIVITY: No heavy lifting DIET: advance to your usual diet Additional Instructions: remove dressing after 48hours - Follow up Plan Follow up with: Patrice Hernandez MD [Staff Physician] - 05/25/21 9:45 am Disposition: Home, Self-Care Condition at discharge:: Stable Home Medications: Home Medications Medication Instructions Recorded Confirmed Type hydrocodone 5 mg-acetaminophen 325 1 tab PO TID PRN #90 tab 05/17/21 05/18/21 Rx mg tablet Diclofenac Sodium [Voltaren 2 g TOPICAL QID 05/18/21 05/18/21 History Arthritis Pain] Lidocaine 1 patch TOPICAL DAILY 05/18/21 05/18/21 History Oxycodone HCl [Oxycodone 5mg tab 5 mg PO Q6 #27 tab 05/20/21 Rx (IR)] Prescriptions/Medication Reconciliation: New Oxycodone HCl [Oxycodone 5mg tab (IR)] 5 mg PO Q6 #27 tab Continued hydrocodone 5 mg-acetaminophen 325 mg tablet 1 tab PO TID PRN #90 tab PRN Reason: pain (breast cancer) Diclofenac Sodium [Voltaren Arthritis Pain] 2 g TOPICAL QID Lidocaine 1 patch TOPICAL DAILY - Problem Reconciliation Problems Reviewed?: Yes
--- NOTE | 2021-05-20 15:37 | PC.NURSE ---
WHEN PT ARRIVED TO THE FLOOR AT 1340 SHE WAS VERY UPSET. PT STATED IF HER SIGNIFICANT OTHER DID NOT GET TO STAY OVERNIGHT WITH HER AND IF SHE WAS NOT GOING TO BE ALLOWED TO GO OUTSIDE TO SMOKE THEN SHE WAS LEAVING. PT STATED SHE FELT FINE AND THERE WAS NO REASON FOR HER TO HAVE TO STAY AT THE HOSPITAL. PT WAS OFFERED A NICOTINE PATCH AND SHE STATED THEY NEVER WORK FOR HER. PT GOT UP TO AND AMBULATED TO THE BATHROOM AND WAS ABLE TO GET HERSELF DRESSED. CHARGE NURSE AND PRIMARY NURSE ENCOURAGED PT TO AT LEAST STAY UNTIL CAME TO TALK WITH HER. PT STATED THAT WAS OKAY BUT HE BETTER HURRY B/C SHE WAS WANTING TO SMOKE NOW. CAME TO THE FLOOR AND WENT OVER SURGERY DETAILS WITH PT AND ENCOURAGED PT TO STAY OVERNIGHT HOWEVER PT STATED IF SHE COULD NOT LEAVE TO SMOKE THEN SHE WANTED HER IV REMOVED AND SHE WAS LEAVING. DRESSING TO THE LT CHEST WAS C/D/I. PT WAS INSTRUCTED TO LEAVE DRESSING ON FOR 48 HOURS UNLESS IT BECOMES SATURATED. PT AND PT'S SIGNIFICANT OTHER WAS INSTRUCTED ON MONITORING FOR BLEEDING. SIGNIFICANT OTHER STATED HE WOULD WITH PT 25/12 AND IF ANYTHING IS TO GO WRONG AT ALL HE WOULD HAVE HER BACK AT THE HOSPITAL.
[2021-05-23 12:59] VITALS: BP 123/82; PULSE 79; TEMP 36.6
--- NOTE | 2021-05-23 12:59 | HMH.ANESII ---
[facility] Anesthesia Record Part II Discharge Time: 13:46 Destination: Surgical Day Care (OP Surgery) PACU nurse assessment reviewed?: Yes Patient Condition:: Good Anesthesia Complications:: None Swallowing reflex intact?: Yes Cyanosis?: No Blood Pressure: 123/82 Pulse Rate: 79 Temperature: 97.9 F Mental Status: Alert & Oriented Pain level:: 0 Nausea and/or vomitting:: None Intake, IV Amount: 0
== END 2021-05-20 15:40 | disposition home or self-care (01) ==
LOC: 2ND 08:47
PROVIDERS: Admitting Provider Surgery; PCP Emergency Medicine; Visit Provider Surgery
PROC: (CPT 19303; principal; 2021-05-20 10:00)
DX: C50.412 Malignant neoplasm of upper-outer quadrant of left female breast (principal); Z17.1 Estrogen receptor negative status [ER-]; F17.210 Nicotine dependence, cigarettes, uncomplicated
CPT/HCPCS: 19303; 38525; 38900; 84702; G0378; J0131; J0330; J2405

== ENCOUNTER 2021-06-01 09:34 | Outpatient (CLI) | payer MEDICAID, SELFPAY ==
[2021-06-01 09:35] VITALS: BP 129/78; PULSE 72; RESP 18; TEMP 36.4; O2SAT 98
[2021-06-01 10:40] VITALS: BP 124/76; PULSE 76; RESP 18; O2SAT 99
--- NOTE | 2021-06-01 11:29 | PC.NURSE ---
06/01/21 1011 discussed with pt what MD office suggested for poc. Pt tearful, initially refused to take additional toradol inj, stating that it won't help . Talked with pt and pt agreed to try additional medication to see if it will help. Toradol 7.5mg IM administered at this time. Will reevaluate pt to determine if additional medication is effective. Warm blanket given for pt comfort, offered food/drink, pt denied needing anything additional.
--- NOTE | 2021-06-01 11:40 | PC.NURSE ---
06/01/21 1040 Reassessed pt at this time to determine level of pain after 2nd Toradol inj. Pt reports no relief of pain after 2nd Toradol inj and cont to rate pain level 6/10. Contacted , Dr. Hernandez's office and spoke with Odalis Fong and told her that pt reports no change in pain level. MD consulted with updated pt report and no additional orders noted at this time. MD states that no additional medication is to be given at this time and pt may be discharged home at this time. MD office stated that pt can be set up with an appt with pain management if pt agreeable. Discussed this option with pt and pt agreeable. Spoke with April and told her of pts desire to seek appt with pain management and she stated she would set that up and contact the pt with information. Pt informed of this.
== END 2021-06-01 10:40 | disposition home or self-care (01) ==
LOC: INF 09:34
PROVIDERS: PCP Emergency Medicine; Visit Provider Surgery
DX: C50.812 Malignant neoplasm of overlapping sites of left female breast (principal); Z17.1 Estrogen receptor negative status [ER-]; Z90.12 Acquired absence of left breast and nipple
CPT/HCPCS: 96372

== ENCOUNTER → 2021-06-13 13:41 | Outpatient (POV) | payer MEDICAID, SELFPAY ==
[2021-06-13 14:23] VITALS: BP 103/61; PULSE 94; RESP 20; TEMP 37.2; O2SAT 99; BMI 23.1
--- NOTE | 2021-06-13 14:57 | HMH.PMCON ---
Assessment and Plan (1) Neuropathic pain Status: Acute Category: Medical Code(s): M79.2 - Neuralgia and neuritis, unspecified (2) Breast cancer, left Status: Acute Qualifiers: Breast location: overlapping sites of breast Estrogen receptor status: positive Patient sex: female Qualified Code(s): C50.812 - Malignant neoplasm of overlapping sites of left female breast; Z17.0 - Estrogen receptor positive status [ER+] Category: Medical Code(s): C50.912 - Malignant neoplasm of unspecified site of left female breast (3) HX: breast cancer Status: Acute Category: Medical Code(s): Z85.3 - Personal history of malignant neoplasm of breast - Assessment and plan all Dx Assessment and Plan for all problems:: Patient has a hx of substance abuse. She was on suboxone treatment last spring. She endorses buying suboxone recently since she ran out of her [place]. Patient is still having significant neuropathic pain at the T1-T3 levels. Due to her hx, we are limited to what we can give her. We discussed the patient with Dr Fonseca. Since she had a recent mastectomy, he recommends that we start her on either gabapentin or lyrica. Patient says that she is allergic to gabapentin. We will start her on Lyrica 75 twice a day. She will follow-up with Dr. Fonseca in two weeks for reevaluation of treatment. Patient has been instructed to contact the clinic with any concerns before the next appointment. Dr. Fonseca has reviewed this note and agrees with this plan of care. This note was dictated using voice recognition software and make contain errors or omissions. HPI - Data of Consult Patient: new to practice Consult date: 06/13/21 Requesting Physician: Huyen Akers APRN Primary Care Provider: Daren Singh MD - Consult Narrative Reason for consult: bilateral arm pain after mastectomy History of present illness: Ms. Bustamante is a 41 year old female who presents today as a new patient. Patient is referred by Dr. Hernandez for management of pain after left mastectomy on 2020. This is the patient's second mastectomy. She had her right mastectomy several years ago where she ended up with right arm/hand numbness to her 4th and 5th digits that follows the T2-T3 dermatome. Today, patient presents with pain, numbness, and paresthesia on the left arm that follows the T1-T3 dermatome. Patient is significantly tender to palpation at this dermatome level. Dr. Singh started her on some norco which eases up some of the pain. Patient has a hx of substance abuse and was on suboxone treatment last Spring 2020. She endorses taking suboxone recently because she ran out of [place]. Patient denies any chest pain, shortness of breath, recent loss of bowel and bladder function. She rates her pain today as 10/10. Her Dangelo number is [phone] with a morphine equivalent of 15. CC: Huyen Akers APRN [facility] History I have reviewed the patient's past medical history: Yes Medical History: Reports:: Anxiety, Gastroesophageal Reflux Disease(GERD), Osteoporosis Denies:: Cancer, Diabetes Mellitus Type 1, Diabetes Mellitus Type 2, MRSA, Seizures *Have you ever received a pneumonia vaccine?: No *Have you received a flu vaccine this season?: No Other Medical History: Reports: Arthritis, Osteoporosis. Denies: Blood Transfusion Reaction Laterality Cases: Right: Arthroscopy Shoulder, Bilateral: Mastectomy, Tonsillectomy Other Surgeries: Yes: Cancer Surgery, Hysterectomy-Total Amputation: No Fractures: No - *Social History Smoking Status: Current every day smoker Tobacco Type: cigarettes # Packs/Day (cigarettes): 1 Alcohol Intake: never Alcohol Intake Frequency:: holidays/special occasions only Substance Use Type: marijuana Last Used Substance: unknown *Occupational Status:: other Housing: house Household Members: other *Travel in the last 8 weeks: None - Psychiatric History Pschychiatric History:: Reports:: Anxiety Family Hx:: No significant fa
== END ==
PROVIDERS: PCP Emergency Medicine; Visit Provider Clinical Nurse Specialist Family Health
DX: M79.2 Neuralgia and neuritis, unspecified (principal); C50.812 Malignant neoplasm of overlapping sites of left female breast; Z72.0 Tobacco use
CPT/HCPCS: 99202; G0463

== ENCOUNTER → 2021-07-15 16:00 | Outpatient (CLI) | payer MEDICAID, SELFPAY ==
[2021-07-15 18:59] LABS: Amphetamine/Metha Screen,Urine Negative ng/ml (<1000)
[2021-07-15 19:00] LABS: Barbiturates Screen,Urine Negative ng/ml (<200); Benzodiazepines Screen,Urine Negative ng/ml (<200)
[2021-07-15 19:01] LABS: Cannabinoid Screen,Urine Positive ng/ml (<50)
[2021-07-15 19:02] LABS: Cocaine Screen,Urine Negative ng/ml (<300); Methadone Screen,Urine Negative ng/ml (<300)
[2021-07-15 19:03] LABS: Opiate Screen,Urine Positive ng/ml (<300)
[2021-07-15 19:04] LABS: Phencyclidine Screen,Urine Negative ng/ml (<25)
== END ==
PROVIDERS: Visit Provider Emergency Medicine
DX: Z79.899 Other long term (current) drug therapy (principal)
CPT/HCPCS: 80305

== ENCOUNTER 2021-08-10 09:28 | Outpatient (CLI) | payer MEDICAID, SELFPAY ==
[2021-08-10 09:33] VITALS: BMI 14.1
[2021-08-10 09:48] LABS: Basophils # 0.1 K/mm3 (0-0.2); Basophils % 0.8 % (0.1-2.0); Eosinophils # 0.1 K/mm3 (0.0-0.4); Eosinophils % 1.5 % (0.1-12.0); Hematocrit 48.7 % (37.0-47.0); Hemoglobin 15.5 g/dL (12.2-16.2); Lymphocytes # 2.1 K/mm3 (0.7-4.5); Lymphocytes % 28.7 % (10-50); Mean Corpuscular HGB Conc 31.9 g/dL (31.8-35.4); Mean Corpuscular Hemoglobin 32.2 pg (27.0-31.2); Mean Corpuscular Volume 100.8 fl (81-99); Mean Platelet Volume 8.1 fl (7.4-10.4); Monocytes # 0.4 K/mm3 (0.1-1.0); Monocytes % 5.9 % (1.7-9.3); Neutrophils # 4.7 K/mm3 (1.8-7.8); Neutrophils % 63.1 % (37.0-80.0); Platelet Count 339 K/mm3 (142-424); Red Blood Count 4.83 M/mm3 (4.20-5.40); Red Cell Distribution Width 13.4 % (11.5-17.5); White Blood Count 7.4 K/mm3 (4.8-10.8)
[2021-08-10 10:10] LABS: Alanine Aminotransferase 19 U/L (12-78); Albumin Level 4.8 g/dl (3.5-5.0); Albumin/Globulin Ratio 1.9 (1.1-1.8); Alkaline Phosphatase 65 U/L (38-126); Anion Gap 12.5 mEq/L (5-15); Aspartate Amino Transferase 31 U/L (14-36); Bilirubin,Total 0.5 mg/dl (0.2-1.3); Blood Urea Nitrogen 20 mg/dl (7-17); Calcium 9.8 mg/dl (8.4-10.2); Carbon Dioxide 28 mmol/L (22.0-30.0); Chloride 103 mmol/L (98-107); Creatinine Clearance Estimated 54 mL/min (50-200); Estimated Glomerular Filt Rate 93 ml/min (>60); GFR (African American) 112 ML/MIN (>60); Globulin 2.5 g/dL (1.3-3.2); Glucose 110 mg/dl (74-100); Potassium 4.5 mmoL/L (3.5-5.1); Sodium 139 mmol/L (136-145); Total Protein,Serum 7.3 g/dl (6.3-8.2)
[2021-08-10 11:05] VITALS: BP 124/71; PULSE 57; RESP 18; TEMP 36.6; O2SAT 100
[2021-08-10 11:15] VITALS: BP 138/81; PULSE 96; RESP 20; O2SAT 97
--- NOTE | 2021-08-10 11:15 | PC.NURSE ---
1115-docetaxel stopped;flushed line with d5w; pt had reaction with facial flushing and redness; chest pain and tightness;notified , told her what meds pt had been given for premeds thus far;orders to hold treatment for today,give pepcid 20mg ivp now and to be added to premeds for next chemo infusion on sunday;call dexamethasone 8mg po bid the day before treatment to pharmacy
[2021-08-10 11:20] VITALS: BP 122/71; PULSE 57; RESP 20; O2SAT 96
[2021-08-10 11:30] VITALS: BP 118/64; PULSE 50; RESP 18; O2SAT 97
[2021-08-10 11:45] VITALS: BP 121/72; PULSE 50; RESP 18; O2SAT 98
[2021-08-10 12:06] VITALS: BP 123/70; PULSE 59; RESP 18; O2SAT 97
== END 2021-08-10 12:06 | disposition home or self-care (01) ==
LOC: INF 09:29
PROVIDERS: PCP Emergency Medicine; Visit Provider Internal Medicine Medical Oncology
DX: Z51.11 Encounter for antineoplastic chemotherapy (principal); C50.912 Malignant neoplasm of unspecified site of left female breast
CPT/HCPCS: 80053; 85025; 96409; J2469; J9171

== ENCOUNTER 2021-08-15 09:51 | Outpatient (CLI) | payer MEDICAID, SELFPAY ==
[2021-08-15] VITALS (11 sets, daily range): BP systolic 107–148; BP diastolic 59–81; PULSE 45–69; RESP 18; TEMP 36.4; O2SAT 100
== END 2021-08-15 12:55 | disposition home or self-care (01) ==
LOC: INF 09:52
PROVIDERS: PCP Emergency Medicine; Visit Provider Internal Medicine Medical Oncology
DX: Z51.11 Encounter for antineoplastic chemotherapy (principal); C50.912 Malignant neoplasm of unspecified site of left female breast
CPT/HCPCS: 96413; 96415; 96417; J2469; J9070; J9171

== ENCOUNTER 2021-08-22 10:11 | Outpatient (CLI) | payer MEDICAID, SELFPAY ==
[2021-08-22 10:16] VITALS: BMI 14.1
[2021-08-22 10:50] VITALS: BP 120/86; PULSE 78; RESP 18
[2021-08-22 11:03] LABS: Chloride 98 mmol/L (98-107); Sodium 134 mmol/L (136-145)
[2021-08-22 11:06] LABS: Alanine Aminotransferase 33 U/L (12-78); Albumin Level 4.3 g/dl (3.5-5.0); Albumin/Globulin Ratio 1.6 (1.1-1.8); Alkaline Phosphatase 62 U/L (38-126); Aspartate Amino Transferase 40 U/L (14-36); Bilirubin,Total 0.9 mg/dl (0.2-1.3); Blood Urea Nitrogen 19 mg/dl (7-17); Carbon Dioxide 27 mmol/L (22.0-30.0); Creatinine Clearance Estimated 62 mL/min (50-200); Estimated Glomerular Filt Rate 111 ml/min (>60); GFR (African American) 134 ML/MIN (>60); Globulin 2.7 g/dL (1.3-3.2)
[2021-08-22 11:07] LABS: Calcium 9.1 mg/dl (8.4-10.2); Glucose 99 mg/dl (74-100)
[2021-08-22 11:31] LABS: Eosinophils % 1.5 % (0.1-12.0); Hematocrit 46.9 % (37.0-47.0); Hemoglobin 15.5 g/dL (12.2-16.2); Lymphocytes # 1.5 K/mm3 (0.7-4.5); Lymphocytes % 88.4 % (10-50); Mean Corpuscular HGB Conc 33.1 g/dL (31.8-35.4); Mean Corpuscular Hemoglobin 33.2 pg (27.0-31.2); Mean Corpuscular Volume 100.2 fl (81-99); Mean Platelet Volume 8.9 fl (7.4-10.4); Monocytes # 0.1 K/mm3 (0.1-1.0); Neutrophils # 0.1 K/mm3 (1.8-7.8); Platelet Count 246 K/mm3 (142-424); Red Blood Count 4.68 M/mm3 (4.20-5.40); Red Cell Distribution Width 12.9 % (11.5-17.5); White Blood Count 1.7 K/mm3 (4.8-10.8)
[2021-08-22 11:52] LABS: Neutrophils % 4.1 % (37.0-80.0)
[2021-08-22 11:56] LABS: MANUAL DIFFERENTIAL MANUAL DIFFERENTIAL (MANUAL DIFF)
--- NOTE | 2021-08-22 12:04 | PC.NURSE ---
1204-notified of lab results;new orders for zofran 8mg ivp and dexamethasone 10mg ivp in addition to ns 1 liter
[2021-08-22 12:25] VITALS: BP 127/68; PULSE 55; RESP 18; TEMP 36.3
[2021-08-22 13:16] LABS: Lymphocytes % 89 % (10-50); Monocytes % 6 % (2-9); Neutrophils % 5 % (42-76); Platelet Estimate Normal; Total Cells Counted 100
[2021-08-22 13:17] LABS: Anisocytosis 1+; Macrocytosis 1+
== END 2021-08-22 12:25 | disposition home or self-care (01) ==
LOC: INF 10:12
PROVIDERS: PCP Emergency Medicine; Visit Provider Internal Medicine Medical Oncology
DX: C50.912 Malignant neoplasm of unspecified site of left female breast (principal)
CPT/HCPCS: 80053; 85007; 85025; 96360; 96375; J2405

== ENCOUNTER → 2021-11-01 14:06 | Outpatient (CLI) | payer MEDICAID, SELFPAY ==
[2021-11-01 14:01] LABS: Amphetamine/Metha Screen,Urine Negative ng/ml (<1000); Barbiturates Screen,Urine Negative ng/ml (<200)
[2021-11-01 14:02] LABS: Benzodiazepines Screen,Urine Negative ng/ml (<200)
[2021-11-01 14:03] LABS: Cannabinoid Screen,Urine Positive ng/ml (<50); Cocaine Screen,Urine Negative ng/ml (<300)
[2021-11-01 14:04] LABS: Methadone Screen,Urine Negative ng/ml (<300)
[2021-11-01 14:05] LABS: Opiate Screen,Urine Positive ng/ml (<300); Phencyclidine Screen,Urine Negative ng/ml (<25)
== END ==
PROVIDERS: Visit Provider Emergency Medicine
DX: M79.2 Neuralgia and neuritis, unspecified (principal)
CPT/HCPCS: 80305

== ENCOUNTER → 2022-02-24 07:14 | Outpatient (CLI) | payer MEDICAID, SELFPAY ==
[2022-02-24 18:43] LABS: Amphetamine/Metha Screen,Urine Negative ng/ml (<1000); Barbiturates Screen,Urine Negative ng/ml (<200)
[2022-02-24 18:45] LABS: Benzodiazepines Screen,Urine Negative ng/ml (<200); Cannabinoid Screen,Urine Positive ng/ml (<50)
[2022-02-24 18:46] LABS: Cocaine Screen,Urine Negative ng/ml (<300)
[2022-02-24 18:47] LABS: Methadone Screen,Urine Negative ng/ml (<300); Opiate Screen,Urine Negative ng/ml (<300)
[2022-02-24 18:48] LABS: Phencyclidine Screen,Urine Negative ng/ml (<25)
== END ==
PROVIDERS: PCP Emergency Medicine; Visit Provider Emergency Medicine
DX: Z79.899 Other long term (current) drug therapy (principal)
CPT/HCPCS: 80305

== ENCOUNTER → 2022-04-24 10:54 | Outpatient (CLI) | payer MEDICAID, SELFPAY ==
[2022-04-24 20:09] LABS: Amphetamine/Metha Screen,Urine Negative ng/ml (<1000)
[2022-04-24 20:10] LABS: Barbiturates Screen,Urine Negative ng/ml (<200)
[2022-04-24 20:11] LABS: Benzodiazepines Screen,Urine Negative ng/ml (<200)
[2022-04-24 20:12] LABS: Cannabinoid Screen,Urine Positive ng/ml (<50); Cocaine Screen,Urine Negative ng/ml (<300)
[2022-04-24 20:13] LABS: Methadone Screen,Urine Negative ng/ml (<300); Opiate Screen,Urine Negative ng/ml (<300)
[2022-04-24 20:14] LABS: Phencyclidine Screen,Urine Negative ng/ml (<25)
== END ==
PROVIDERS: PCP Emergency Medicine; Visit Provider Emergency Medicine
DX: M79.2 Neuralgia and neuritis, unspecified (principal)
CPT/HCPCS: 80305

== ENCOUNTER → 2022-06-21 11:10 | Outpatient (CLI) | payer MEDICAID, SELFPAY ==
[2022-06-21 15:39] LABS: Barbiturates Screen,Urine Negative ng/ml (<200); Benzodiazepines Screen,Urine Negative ng/ml (<200)
[2022-06-21 15:40] LABS: Cannabinoid Screen,Urine Positive ng/ml (<50); Cocaine Screen,Urine Negative ng/ml (<300)
[2022-06-21 15:41] LABS: Methadone Screen,Urine Negative ng/ml (<300)
[2022-06-21 16:24] LABS: Opiate Screen,Urine Negative ng/ml (<300)
[2022-06-21 16:25] LABS: Phencyclidine Screen,Urine Negative ng/ml (<25)
[2022-06-21 17:48] LABS: Amphetamine/Metha Screen,Urine Negative ng/ml (<1000)
== END ==
PROVIDERS: PCP Emergency Medicine; Visit Provider Emergency Medicine
DX: Z79.899 Other long term (current) drug therapy (principal)
CPT/HCPCS: 80305

== ENCOUNTER → 2022-08-09 09:45 | Outpatient (CLI) | payer MEDICAID, SELFPAY ==
[2022-08-09 14:09] LABS: Phencyclidine Screen,Urine Negative ng/ml (<25)
[2022-08-09 14:33] LABS: Amphetamine/Metha Screen,Urine Negative ng/ml (<1000); Barbiturates Screen,Urine Negative ng/ml (<200)
[2022-08-09 14:34] LABS: Benzodiazepines Screen,Urine Negative ng/ml (<200)
[2022-08-09 14:35] LABS: Cannabinoid Screen,Urine Negative ng/ml (<50); Cocaine Screen,Urine Negative ng/ml (<300)
[2022-08-09 14:36] LABS: Methadone Screen,Urine Negative ng/ml (<300)
[2022-08-09 14:37] LABS: Opiate Screen,Urine Positive ng/ml (<300)
== END ==
PROVIDERS: PCP Emergency Medicine; Visit Provider Emergency Medicine
DX: Z02.83 Encounter for blood-alcohol and blood-drug test (principal)
CPT/HCPCS: 80305

== ENCOUNTER → 2022-10-10 11:01 | Outpatient (CLI) | payer MEDICAID, SELFPAY ==
[2022-10-10 16:02] LABS: Amphetamine/Metha Screen,Urine Negative ng/ml (<1000)
[2022-10-10 16:03] LABS: Barbiturates Screen,Urine Negative ng/ml (<200)
[2022-10-10 16:05] LABS: Benzodiazepines Screen,Urine Negative ng/ml (<200); Cannabinoid Screen,Urine Negative ng/ml (<50)
[2022-10-10 16:06] LABS: Cocaine Screen,Urine Negative ng/ml (<300)
[2022-10-10 16:08] LABS: Methadone Screen,Urine Negative ng/ml (<300); Opiate Screen,Urine Positive ng/ml (<300)
[2022-10-10 16:09] LABS: Phencyclidine Screen,Urine Negative ng/ml (<25)
== END ==
PROVIDERS: PCP Emergency Medicine; Visit Provider Emergency Medicine
DX: Z79.899 Other long term (current) drug therapy (principal)
CPT/HCPCS: 80305

== ENCOUNTER → 2022-12-04 13:35 | Outpatient (CLI) | payer MEDICAID, SELFPAY ==
[2022-12-04 12:57] LABS: Phencyclidine Screen,Urine Negative ng/ml (<25)
[2022-12-04 13:04] LABS: Amphetamine/Metha Screen,Urine Negative ng/ml (<1000); Barbiturates Screen,Urine Negative ng/ml (<200)
[2022-12-04 13:05] LABS: Benzodiazepines Screen,Urine Negative ng/ml (<200)
[2022-12-04 13:06] LABS: Cannabinoid Screen,Urine Positive ng/ml (<50)
[2022-12-04 13:08] LABS: Opiate Screen,Urine Positive ng/ml (<300)
[2022-12-04 13:09] LABS: Cocaine Screen,Urine Negative ng/ml (<300)
[2022-12-04 13:10] LABS: Methadone Screen,Urine Negative ng/ml (<300)
== END ==
PROVIDERS: PCP Emergency Medicine; Visit Provider Emergency Medicine
DX: M79.2 Neuralgia and neuritis, unspecified (principal)
CPT/HCPCS: 80305

== ENCOUNTER → 2023-02-21 09:54 | Outpatient (CLI) | payer MEDICAID, SELFPAY ==
[2023-02-02 13:50] LABS: Barbiturates Screen,Urine Negative ng/ml (<200)
[2023-02-02 13:51] LABS: Amphetamine/Metha Screen,Urine Negative ng/ml (<1000)
[2023-02-02 13:52] LABS: Cocaine Screen,Urine Negative ng/ml (<300)
[2023-02-02 13:53] LABS: Benzodiazepines Screen,Urine Negative ng/ml (<200); Cannabinoid Screen,Urine Positive ng/ml (<50)
[2023-02-02 13:56] LABS: Phencyclidine Screen,Urine Negative ng/ml (<25)
[2023-02-02 13:57] LABS: Methadone Screen,Urine Negative ng/ml (<300); Opiate Screen,Urine Positive ng/ml (<300)
== END ==
PROVIDERS: PCP Emergency Medicine; Visit Provider Emergency Medicine
DX: M79.2 Neuralgia and neuritis, unspecified (principal)
CPT/HCPCS: 80305

== ENCOUNTER → 2023-04-02 16:37 | Outpatient (CLI) | payer MEDICAID, SELFPAY ==
[2023-04-02 13:19] LABS: Amphetamine/Metha Screen,Urine Negative ng/ml (<1000); Barbiturates Screen,Urine Negative ng/ml (<200)
[2023-04-02 13:20] LABS: Benzodiazepines Screen,Urine Negative ng/ml (<200)
[2023-04-02 13:21] LABS: Cannabinoid Screen,Urine Positive ng/ml (<50); Cocaine Screen,Urine Negative ng/ml (<300)
[2023-04-02 13:22] LABS: Methadone Screen,Urine Negative ng/ml (<300); Opiate Screen,Urine Positive ng/ml (<300)
[2023-04-02 13:23] LABS: Phencyclidine Screen,Urine Negative ng/ml (<25)
== END ==
PROVIDERS: PCP Emergency Medicine; Visit Provider Emergency Medicine
DX: M79.2 Neuralgia and neuritis, unspecified (principal)
CPT/HCPCS: 80305

== ENCOUNTER → 2023-04-24 09:27 | Outpatient (CLI) | payer MEDICAID, SELFPAY ==
[2023-04-24 20:34] LABS: Amphetamine/Metha Screen,Urine Negative ng/ml (<1000)
[2023-04-24 20:36] LABS: Benzodiazepines Screen,Urine Negative ng/ml (<200); Cannabinoid Screen,Urine Negative ng/ml (<50)
[2023-04-24 20:37] LABS: Cocaine Screen,Urine Negative ng/ml (<300)
[2023-04-24 20:38] LABS: Methadone Screen,Urine Negative ng/ml (<300)
[2023-04-24 20:39] LABS: Phencyclidine Screen,Urine Negative ng/ml (<25)
[2023-04-24 20:51] LABS: Opiate Screen,Urine Positive ng/ml (<300)
[2023-04-24 21:36] LABS: Barbiturates Screen,Urine Negative ng/ml (<200)
== END ==
PROVIDERS: PCP Emergency Medicine; Visit Provider Emergency Medicine
DX: Z79.899 Other long term (current) drug therapy (principal)
CPT/HCPCS: 80305

== ENCOUNTER 2023-06-25 12:34 | Outpatient (CLI) | payer MEDICAID, SELFPAY ==
[2023-06-25 12:53] LABS: Chloride 99 mmol/L (98-107); Sodium 139 mmol/L (136-145)
[2023-06-25 12:54] LABS: Potassium 4.6 mmoL/L (3.5-5.1)
[2023-06-25 12:56] LABS: Alanine Aminotransferase 17 U/L (12-78); Albumin Level 5.2 g/dl (3.5-5.0); Albumin/Globulin Ratio 1.9 (1.1-1.8); Alkaline Phosphatase 105 U/L (38-126); Anion Gap 14.6 mEq/L (5-15); Aspartate Amino Transferase 32 U/L (14-36); Basophils # 0.1 K/mm3 (0-0.2); Basophils % 0.5 % (0.1-2.0); Bilirubin,Total 0.6 mg/dl (0.2-1.3); Blood Urea Nitrogen 15 mg/dl (7-17); Carbon Dioxide 30 mmol/L (22.0-30.0); Eosinophils # 0.1 K/mm3 (0.0-0.4); Eosinophils % 0.7 % (0.1-12.0); Estimated Glomerular Filt Rate 92 ml/min (>60); GFR (African American) 111 ML/MIN (>60); Globulin 2.8 g/dL (1.3-3.2); Hemoglobin 16.4 g/dL (12.2-16.2); Lymphocytes # 2.4 K/mm3 (0.7-4.5); Lymphocytes % 25.4 % (10-50); Mean Corpuscular HGB Conc 32.8 g/dL (31.8-35.4); Mean Corpuscular Hemoglobin 32.5 pg (27.0-31.2); Mean Corpuscular Volume 99.1 fl (81-99); Mean Platelet Volume 8.3 fl (7.4-10.4); Monocytes # 0.5 K/mm3 (0.1-1.0); Monocytes % 5.2 % (1.7-9.3); Neutrophils # 6.5 K/mm3 (1.8-7.8); Neutrophils % 68.1 % (37.0-80.0); Platelet Count 274 K/mm3 (142-424); Red Blood Count 5.04 M/mm3 (4.20-5.40); Red Cell Distribution Width 13.3 % (11.5-17.5); White Blood Count 9.5 K/mm3 (4.8-10.8)
[2023-06-25 12:57] LABS: Calcium 10.1 mg/dl (8.4-10.2); Chol/HDL Ratio 3.5 (1-3.5); Cholesterol 249 mg/dl (140-200); Glucose 104 mg/dl (74-100); HDL Cholesterol 72 mg/dl (40-60); Triglycerides 105 mg/dl (30-150); VLDL Cholesterol 21 mg/dL (0-40)
[2023-06-25 13:10] LABS: Direct LDL Cholesterol 136.35 mg/dL (100-129)
[2023-06-25 13:14] LABS: 25-OH Vitamin D, Total 21.4 ng/mL (30-100)
[2023-06-25 19:20] LABS: Amphetamine/Metha Screen,Urine Negative ng/ml (<1000); Barbiturates Screen,Urine Negative ng/ml (<200); Benzodiazepines Screen,Urine Negative ng/ml (<200); Cannabinoid Screen,Urine Negative ng/ml (<50); Cocaine Screen,Urine Negative ng/ml (<300); Methadone Screen,Urine Negative ng/ml (<300); Opiate Screen,Urine Negative ng/ml (<300); Phencyclidine Screen,Urine Negative ng/ml (<25)
[2023-06-25 21:48] LABS: Thyroid Stimulating Hormone 1.81 uIU/mL (0.465-4.68)
[2023-06-28 16:13] LABS: Opiates Negative (Cutoff=100)
== END 2023-06-25 23:59 ==
LOC: LAB.DROPOF 12:35
PROVIDERS: PCP Family Medicine; Visit Provider Family Medicine
DX: Z79.899 Other long term (current) drug therapy (principal); Z85.3 Personal history of malignant neoplasm of breast; E55.9 Vitamin D deficiency, unspecified; Z68.1 Body mass index [BMI] 19.9 or less, adult; Z72.0 Tobacco use
CPT/HCPCS: 80053; 80061; 80307; 80361; 80365; 82306; 84443; 85025; G0480